=== PATIENT | male | born 1950 | race Asian ===

== ENCOUNTER 2018-11-23 02:39 | Emergency (ER) | payer MEDICARE, OTHER ==
[~2018-11-23] VITALS: Ht 157.5 cm; Wt 68.0 kg
[2018-11-23 02:39] VITALS: BP_SYST 147
[2018-11-23 03:35] VITALS: BP_SYST 132
== END 2018-11-23 03:35 | disposition home or self-care (01) ==
LOC: SED 02:39
DX: S05.02XA Injury of conjunctiva and corneal abrasion without foreign body, left eye, initial encounter (principal); E78.00 Pure hypercholesterolemia, unspecified; X58.XXXA Exposure to other specified factors, initial encounter; Y93.89 Activity, other specified; Y92.89 Other specified places as the place of occurrence of the external cause; Y99.8 Other external cause status
CPT/HCPCS: 99283